=== PATIENT | female | born 1960 | race Caucasian/White ===

== ENCOUNTER 2016-07-18 07:33 | Outpatient (CLI) ==
--- NOTE | 2016-07-18 08:47 | DI ---
EXAM: Two views of the chest. History: Short of breath Findings: Heart size is within normal limits. No focal consolidation. No appreciable pleural flui d and no pneumothorax. A few old left-sided rib fractures. Surgical clips seen within the left axi lla. Degenerative changes seen within the visualized upper lumbar spine. Impression: No acute cardiopulmonary process.
--- NOTE | 2016-07-18 08:47 | DI ---
EXAM: Four views of the left knee. History: Left knee pain. Findings: No acute fracture or dislocation. No abnormal calcifications or radiopaque foreign soledad s. Mild to moderate narrowing of the lateral compartment and patellofemoral compartment. Mild narr owing of the medial compartment. There are small osteophytes. Impression: No acute osseous abnormality. Mild to moderate osteoarthritis.
--- NOTE | 2016-07-18 08:47 | DI ---
EXAM: Four views of the right knee. History: Right knee pain. Findings: No acute fracture or dislocation. Mild to moderate tricompartmental joint space narrowin g with small osteophytes. No radiopaque foreign bodies. Impression: No acute osseous abnormality. Mild to moderate osteoarthritis.
== END 2016-07-18 07:34 | disposition home or self-care (01) ==
LOC: RAD 07:33
PROVIDERS: ATTEND Internal Medicine
DX: R06.02 Shortness of breath (principal); M25.562 Pain in left knee; M25.561 Pain in right knee

== ENCOUNTER 2016-07-26 12:10 | Outpatient (CLI) ==
--- NOTE | 2016-07-26 13:10 | US ---
EXAM: Bilateral carotid artery Doppler History: Dizziness and hypertension. Technique: Multiple sonographic images through the bilateral internal carotid arteries were obtaine d. Color duplex Doppler was used to interrogate vascular flow. Findings: The right ICA peak systolic velocity is within normal limits measuring 0.7 meters per second. The r ight ICA/cca PSV ratio is normal at 1.1. The right vertebral artery is patent and demonstrates ante grade flow. Gardner scale images demonstrate no significant plaque buildup. The left ICA peak systolic velocity is within normal limits measuring 0.8 meters per second. The le ft ICA/cca PSV ratio is normal. 1.1. The left vertebral artery is patent and demonstrates antegrad e flow. Gardner scale images demonstrate no significant plaque buildup. Impression: No significant hemodynamic stenosis of the bilateral internal carotid arteries.
== END 2016-07-26 12:11 | disposition home or self-care (01) ==
LOC: RAD 12:10
PROVIDERS: ATTEND Internal Medicine
DX: R42 Dizziness and giddiness (principal)

== ENCOUNTER 2016-07-27 06:29 | Outpatient (CLI) ==
--- NOTE | 2016-07-31 12:06 | ECHO2D ---
Date of Exam: 07/27/16 Ordering Physician: ANH GARCIA Reason for Echo: SOB, HYPERTENSION M-Mode Normal Adult Results LV Dimensions Normal Adult Results AoV Opening excursions >1.6 >1.6 LVEDD-base- 3.5-5.8 4.8 Ao root dimensions 2.0-3.7 3.4 LVESD-base- 3.1-4.6 L. Atrium dimensions 1.9-3.8 3.4 Post. Wall thickness 0.8-1.1 1.3 IV septum (thickness) 0.7-1.2 1.3 Post. Wall excursion 0.72-1.3 NORMAL Septal motion NORMAL Systolic motion R. Ventricular cavity 1.5-2.0 NORMAL LVEF 60% 50% Paradoxical septal wall motion NORMAL 2-D :2-D M Mode Echocardiogram was performed using apical four chamber and left parasternal long and short axis views. Mitral, tricuspid and aortic valves appear to be normal. Contractility of the left ventricle seems to be normal, so is the cavity size. Left atrial cavity size and aortic root appear to be normal. There is no pericardial effusion. There is no thrombus noted in the left ventricular or left aortic cavity. No mitral valve prolapse noted. M-MODE: MV: NORMAL AV: NORMAL TV: NORMAL PV: CHAMBER SIZE: NORMAL WALL MOTION: NORMAL PERICARDIUM: NORMAL INTERPRETATION: 1. LEFT VENTRICULAR HYPERTROPHY 2. NORMAL LEFT VENTRICULAR CONTRACTILITY 3. NORMAL VALVES MTDD
== END 2016-07-27 06:30 | disposition home or self-care (01) ==
LOC: CAR 06:29
PROVIDERS: ATTEND Internal Medicine
DX: R06.02 Shortness of breath (principal); I10 Essential (primary) hypertension

== ENCOUNTER 2016-07-28 06:28 | Outpatient (CLI) ==
--- NOTE | 2016-07-28 10:28 | NM ---
EXAM: Myocardial perfusion imaging HISTORY: Shortness of breath and hypertension COMPARISON: None. TECHNIQUE: Patient was injected 4 mCi of thallium 201 chloride intravenously while at rest. SPECT i maging of the heart was acquired. Patient was stressed on a treadmill using Mahesh protocol and at p eak exercise injected 24.9 mCi of Tc99m Sestamibi intravenously. Another SPECT imaging of the heart was performed. Gated cardiac study was acquired. FINDINGS: Post stress images show normal left ventricular cavity size. Reduced perfusion is noted i nvolving anterior wall. This shows reperfusion on delayed imaging. No other perfusion abnormality is detected. Left ventricular ejection fraction is 69% and wall motion is normal. IMPRESSION: 1. SPECT myocardial imaging shows mild degree of anterior wall reversible ischemia. 2. Normal left ventricular ejection fraction and normal wall motion
--- NOTE | 2016-07-31 12:03 | STECHOSEST ---
Date of Test: 07/28/16 Reason for Exam: SOB, HTN Ordering Physician: ANH GARCIA Current Medications: PRAVASTATIN, BLOOD PRESSURE PILL Physical Findings: S1, S2, NO S3 Resting EKG: SINUS RHYTHM Target Heart Rate: 141/166 STAGE MPH/GRADE HEART RATE BPM BLOOD PRESSURE mmhg RHYTHM S-T SEGMENT UP DOWN SYMPTOMS,COMMENTS At Rest 75 132/86 SR X NONE 1 1.7/10% 121 172/90 SR X NONE 2 2.5/12% 3 3.4/14% 4 4.2/16% 5 5.0/18% Immediately after 142 134/86 SR X SHORT OF BREATH Total Time: 4:00 Durations of Exercise: 142 Reason for Termination: SHORT OF BREATH 5 MIN POST EXERCISE: HR 75/BPM, BP 134/86 MMHG, SR S-T SEGMENT +/- INTERPRETATION: 98% OXYGEN SATURATION WITH EXERCISE ON ROOM AIR METS 7.0 1. NO EVIDENCE OF ISCHEMIA BY ST-T WAVE 2. NO CHEST PAIN OR CHEST DISCOMFORT 3. NO ARRHYTHMIAS 4. BLOOD PRESSURE RESPONSE: NORMAL SESTAMIBI TO FOLLOW MTDD
== END 2016-07-28 06:29 | disposition home or self-care (01) ==
LOC: CAR 06:28
PROVIDERS: ATTEND Internal Medicine
DX: R94.31 Abnormal electrocardiogram [ECG] [EKG] (principal); R06.02 Shortness of breath; I10 Essential (primary) hypertension
CPT/HCPCS: 93017; 93018

== ENCOUNTER 2018-04-15 14:20 | Inpatient (IN) ==
[2018-04-15 14:49] VITALS: BMI 34.9
[2018-04-15] MEDS ORDERED: DECADRON 4 MG/ML SDV IM STA (15:20)
[2018-04-15] MEDS ORDERED: NON-FORMULARY MEDICATION (Celecoxib [Celebrex] 200 MG) PO PRN (15:54)
[2018-04-15] MEDS ORDERED: CELEBREX PO PRN ×2 (15:57→16:00)
[2018-04-15] MEDS ORDERED: NON-FORMULARY MEDICATION (Atorvastatin Calcium [Lipitor] 40 MG) PO SCH (16:00)
[2018-04-15] MEDS ORDERED: ROCEPHIN ONE (16:26)
[2018-04-15] MEDS: SODIUM CHLORIDE 1,000 ML IV SCH (16:30)
[2018-04-15] MEDS: LIPITOR PO SCH (16:30)
[2018-04-15] MEDS: ROCEPHIN 1 GM in SODIUM CHLORIDE 50 ML IV SCH (16:30)
[2018-04-15] MEDS: CLEOCIN 300 MG in SODIUM CHLORIDE 100 ML IV SCH ×2 (17:43→22:29)
[2018-04-15] MEDS ORDERED: TORADOL IVP PRN (18:40)
[2018-04-16] MEDS: CLEOCIN 300 MG in SODIUM CHLORIDE 100 ML IV SCH (04:53)
[2018-04-16] MEDS: SODIUM CHLORIDE 1,000 ML IV SCH (04:53)
--- NOTE | 2018-04-16 07:36 | CT ---
EXAM: CT THORAX HISTORY: Mastitis. TECHNIQUE: CT thorax with and without intravenous contrast. Multiplanar images presented. 75 ml Om nipaque COMPARISON: None FINDINGS: Normal heart size. No pericardial effusion. Atherosclerotic disease is relatively mild although jaylen ears to involve the coronary arteries. The lungs are clear. No suspicious pulmonary opacities. There is no vascular congestion, pneumothor ax or pleural fluid. The bones reveal scattered degenerative endplate changes and osteophytic spurring. There are a few s urgical clips in the left axillary region. Peripheral soft tissues reveal thickening of the skin of the anterior left breast. IMPRESSION: 1. Moderate skin thickening of the anterior left breast without well-defined abscess. This can be c onsistent with cellulitis or superficial mastitis. Inflammatory carcinoma is not excluded. Follow u p with mammography center is recommended. 2. Clear lungs. 3. Atherosclerosis.
[2018-04-16] MEDS: ROCEPHIN 1 GM in SODIUM CHLORIDE 50 ML IV SCH (09:00)
[2018-04-16] MEDS: LIPITOR PO SCH (09:00)
--- NOTE | 2018-04-16 09:32 | PCM.PROG ---
Attending Provider: ATTENDING PROVIDER: Dr. ANH GARCIA This patient is seen with Lupe Aguilar, Nurse Practitioner. DATE OF SERVICE: 04/16/18 SUBJECTIVE: This 57 year old WHITE/ F was hospitalized 04/15/18. The patient is resting comfortably. No fever. She states pain in left breast is slightly improved; still with redness. REVIEW OF SYSTEMS: CONSTITUTIONAL: No night sweats. No fatigue, malaise, lethargy. No fever or chills. HEENT: Eyes: No visual changes. No eye pain. No eye discharge. ENT: No runny nose. No epistaxis. No sinus pain. No odynophagia. No congestion. RESPIRATORY: No cough, no congestion. No hemoptysis. No shortness of breath. CARDIOVASCULAR: No angina symptoms. No CHF symptoms. No atypical chest pain for CAD. No palpitations. No orthopnea.. GASTROINTESTINAL: No abdominal pain. No nausea or vomiting. No diarrhea or constipation. No hematemesis. No hematochezia. GENITOURINARY: No urgency. No frequency. No dysuria. No hematuria. No obstructive symptoms. No discharge. No pain. No significant abnormal bleeding. MUSCULOSKELETAL: Left breast pain. No musculoskeletal pain; no joint swelling. NEUROLOGICAL: Awake, alert, oriented to time, place and person. No headache. No neck pain. No syncope. No seizures. No dizziness. PSYCHIATRIC: Not anxious. No depression. No suicidal thoughts. No homicidal thoughts. SKIN: No rash. No lesions. No wounds. Erythema left breast particularly around areola. Tenderness improving. ENDOCRINE: No unexplained weight loss. No weight gain. HEMATOLOGIC/LYMPHATIC: No anemia. No purpura. No petechiae. No prolonged or excessive bleeding. No palpable lymph nodes. PHYSICAL EXAMINATION: GENERAL: The patient is awake, alert and oriented, lying in bed in no distress. VITAL SIGNS: Temperature 97.7 F, Pulse 72, Respiratory Rate 20, BP 150/80, Pulse Ox 95% HEENT: Head normocephalic, atraumatic. Eyes: Extraocular muscles are intact. Pupils are equal, round and reactive to light and accommodation. Ears: No lesions. Nose appeared normal. Throat: No exudate or erythema. NECK: Supple. No JVD, no carotid bruit. No lymphadenopathy or thyromegaly. LUNGS: Clear to auscultation. Percussion note normal. Chest symmetrical. BREASTS: Erythema left breast particularly around areola, improving tenderness. No masses. Left axilla lymphadenopathy. HEART: S1, S2, no S3. No murmurs. No cyanosis or clubbing. No ascites. Pulses: Dorsalis pedis and posterior tibial pulses +1 to +2 both sides. ABDOMEN: Soft. Non-tender. Bowel sounds active. No CVA tenderness. No mass felt. EXTREMITIES: No edema. Full range of motion of all extremities, equal. NEUROLOGIC: No focal deficit. Cranial nerves II through XII are grossly intact. No headache, no double vision or headache. SKIN: Not dry. Intact. Turgor-normal. LYMPHATIC: No palpable lymph nodes/no lymphedema. MUSCULOSKELETAL: Normal joints with no swelling. Muscle tone is normal. LAB REVIEW: 04/16/18 04:50 04/16/18 04:50 04/16/18 04:50: Sodium 139.0, Potassium 4.23, Chloride 103.9, Carbon Dioxide 26.5, Anion Gap 12.83, BUN 12.7, Creatinine 0.51 L, Estimated GFR (MDRD) 125.00 , BUN/Creatinine Ratio 24.90, Glucose 125.4 H, Calcium 9.51, Total Bilirubin 0.59, AST 25.6, ALT 25.7, Alkaline Phosphatase 87.4, Total Protein 7.56, Albumin 4.50, Globulin 3.06, Albumin/Globulin Ratio 1.47 04/16/18 04:50: WBC 13.00 H, RBC 5.20, Hgb 14.4, Hct 43.1, MCV 82.9, MCH 27.7, MCHC 33.4, RDW Coeff of Emerson 12.7, Plt Count 312, Immature Gran % (Auto) 0.3, Neut % (Auto) 83.3, Lymph % (Auto) 10.2, [place] % (Auto) 5.9, Eos % (Auto) 0.1, Baso % (Auto) 0.2, Immature Gran # (Auto) 0.0, Neut # (Auto) 10.8 H, Lymph # ( Auto) 1.3, [place] # (Auto) 0.8, Eos # (Auto) 0.0, Baso # (Auto) 0.0 04/15/18 15:33: Sodium 138.3, Potassium 4.11, Chloride 101.3, Carbon Dioxide 27.2, Anion Gap 13.91, BUN 10.1, Creatinine 0.59 L, Estimated GFR (MDRD) 105.00 , BUN/Creatinine Ratio 17.11, Glucose 131.7 H, Calcium 9.71, Total Bilirubin 0.56, AST 27.5, ALT 27.5, Alkaline Phosphatase 87.2, Total Protein 7.51, Albumin 4.49, Globulin 3.02, Albumin/Globulin Ratio 1.48 04/15/18 15:33: WBC 13.25 H, RBC 5.14, Hgb 14.4, Hct 42.3, MCV 82.3, MCH 28.0, MCHC 34.0, RDW Coeff of [place] 12.6, Plt Count 281, Immature Gran % (Auto) 0.3, Neut % (Auto) 79.9, Lymph % (Auto) 11.8, [place] % (Auto) 7.1, Eos % (Auto) 0.5, Baso % (Auto) 0.4, Immature Gran # (Auto) 0.0, Neut # (Auto) 10.6 H, Lymph # ( Auto) 1.6, [place] # (Auto) 0.9, Eos # (Auto) 0.1, Baso # (Auto) 0.1 ASSESSMENT: 1. Left breast mastitis 2. Fever - improved PLAN: 1. Continue IV antibiotics. 2. Radiology has agreed to do ultrasound of left breast tomorrow when radiologist is present otherwise previously refused. Plan and coordination of the patient's care discussed in the presence of Fitting Room Maintenance Mechanic and nurse. CONDITION: Stable SCRIBED BY: AN ALMANZAR Leather Stripping Machine Operator scribed while in presence of service performed by Dr. Garcia/Lupe Aguilar APRN on 04/16/18 ([id number])
[2018-04-16] MEDS ORDERED: CLEOCIN 300 MG in SODIUM CHLORIDE 50 ML IV SCH (13:00)
[2018-04-16] MEDS: CLEOCIN 600 MG in SODIUM CHLORIDE 50 ML IV SCH (20:30)
[2018-04-17] MEDS: SODIUM CHLORIDE 1,000 ML IV SCH (02:36)
[2018-04-17] MEDS: CLEOCIN 600 MG in SODIUM CHLORIDE 50 ML IV SCH ×2 (06:15→12:23)
[2018-04-17 06:19] VITALS: BP 162/93; TEMP 98.1
--- NOTE | 2018-04-17 09:04 | PCM.PROG ---
Attending Provider: ATTENDING PROVIDER: Dr. ANH GARCIA DATE OF SERVICE: 04/17/18 SUBJECTIVE: This 57 year old WHITE/ F was hospitalized 04/15/18 with mastitis of left breast. She is feeling much better. She states not much tenderness in the left breast. She is afebrile, no chills. Appetite improved. REVIEW OF SYSTEMS: CONSTITUTIONAL: No night sweats. No fatigue, malaise, lethargy. No fever or chills. HEENT: Eyes: No visual changes. No eye pain. No eye discharge. ENT: No runny nose. No epistaxis. No sinus pain. No odynophagia. No congestion. RESPIRATORY: No cough, no congestion. No hemoptysis. No shortness of breath. CARDIOVASCULAR: No angina symptoms. No CHF symptoms. No atypical chest pain for CAD. No palpitations. No orthopnea.. GASTROINTESTINAL: No abdominal pain. No nausea or vomiting. No diarrhea or constipation. No hematemesis. No hematochezia. GENITOURINARY: No urgency. No frequency. No dysuria. No hematuria. No obstructive symptoms. No discharge. No pain. No significant abnormal bleeding. MUSCULOSKELETAL: No musculoskeletal pain; no joint swelling. NEUROLOGICAL: Awake, alert, oriented to time, place and person. No headache. No neck pain. No syncope. No seizures. No dizziness. PSYCHIATRIC: Not anxious. No depression. No suicidal thoughts. No homicidal thoughts. SKIN: Less redness in the left breast and left axilla. No lesions. No wounds. ENDOCRINE: No unexplained weight loss. No weight gain. HEMATOLOGIC/LYMPHATIC: No anemia. No purpura. No petechiae. No prolonged or excessive bleeding. No palpable lymph nodes. PHYSICAL EXAMINATION: GENERAL: The patient is awake, alert and oriented, lying in bed in no distress. VITAL SIGNS: Temperature 98.1 F, Pulse 60, Respiratory Rate 16, BP 162/93, Pulse Ox 98% HEENT: Head normocephalic, atraumatic. Eyes: Extraocular muscles are intact. Pupils are equal, round and reactive to light and accommodation. Ears: No lesions. Nose appeared normal. Throat: No exudate or erythema. NECK: Supple. No JVD, no carotid bruit. No lymphadenopathy or thyromegaly. LUNGS: Clear to auscultation. Percussion note normal. Chest symmetrical. HEART: S1, S2, no S3. No murmurs. No cyanosis or clubbing. No ascites. Pulses: Dorsalis pedis and posterior tibial pulses +1 to +2 both sides. ABDOMEN: Soft. Non-tender. Bowel sounds active. No CVA tenderness. No mass felt. EXTREMITIES: No edema. Full range of motion of all extremities, equal. NEUROLOGIC: No focal deficit. Cranial nerves II through XII are grossly intact. No headache, no double vision or headache. SKIN: Warm and dry. Intact. Turgor-normal. Streaks going to the left axilla are practically absent now and redness size has shrunk since yesterday with skin overlying the inflamed area less tense. LYMPHATIC: No palpable lymph nodes/no lymphedema. MUSCULOSKELETAL: Normal joints with no swelling. Muscle tone is normal. LAB REVIEW: 04/17/18 06:40 04/17/18 06:40 04/17/18 06:40: Sodium 141.3, Potassium 4.02, Chloride 104.2, Carbon Dioxide 27.8, Anion Gap 13.32, BUN 12.9, Creatinine 0.51 L, Estimated GFR (MDRD) 125.00 , BUN/Creatinine Ratio 25.29, Glucose 87.0, Calcium 8.61, Total Bilirubin 0.28, AST 31.5, ALT 29.0, Alkaline Phosphatase 78.1, Total Protein 6.57, Albumin 3.79 , Globulin 2.78, Albumin/Globulin Ratio 1.36 04/17/18 06:40: WBC 9.77, RBC 4.72, Hgb 13.0, Hct 39.4, MCV 83.5, MCH 27.5, MCHC 33.0, RDW Coeff of Emerson 12.7, Plt Count 271, Immature Gran % (Auto) 0.3, Neut % (Auto) 49.5, Lymph % (Auto) 38.9, [place] % (Auto) 8.6, Eos % (Auto) 2.1, Baso % (Auto) 0.6, Immature Gran # (Auto) 0.0, Neut # (Auto) 4.8, Lymph # (Auto ) 3.8 H, [place] # (Auto) 0.8, Eos # (Auto) 0.2, Baso # (Auto) 0.1 ASSESSMENT: 1. Mastitis seems to be resolving with Rocephin and Clindamycin. WBC count normal, afebrile. PLAN: 1. The patient will have mammogram and ultrasound today. 2. The patient will likely be discharged pending results. 3. At discharge, Omnicef 300 mg b.i.d times 10 days, Clindamycin 300 mg t.i.d. times five days. 4. Iinstructed to come back and see me on Sunday. Plan and coordination of the patient's care discussed in the presence of Oil Tank Car Cleaner and nurse. CONDITION: Stable SCRIBED BY: AN ALMANZAR Clinical Documentation Spec scribed while in presence of service performed by Dr. ANH GARCIA on 04/17/18 ([id number])
[2018-04-17] MEDS: ROCEPHIN 1 GM in SODIUM CHLORIDE 50 ML IV SCH (10:07)
[2018-04-17] MEDS: LIPITOR PO SCH (10:07)
--- NOTE | 2018-04-17 13:27 | PN ---
DATE OF SERVICE: 04/15/18 SUBJECTIVE: The patient was hospitalized through the office. The patient was seen and examined by the nurse practitioner. The patient's plan to be for the treatment is to get IV antibiotics, double. The patient was reluctant to get hospitalized. I explained the differential diagnosis. CONDITION: Stable. TIME SPENT: More than 30 minutes. Plan and coordination of the patient's care discussed in the presence of nurse. JACQUES
--- NOTE | 2018-04-17 13:54 | HP ---
DATE OF SERVICE: 04/15/18 HISTORY OF PRESENT ILLNESS: This 57-year-old /White female presented with head congestion, yesterday tender left axilla and today woke up with left breast red, tender into axilla and low grade temperature. She is chilled, weak, can't even wear bra. No nipple discharge. PAST MEDICAL HISTORY: Dyslipidemia Obesity Hypertension Psoriasis Osteoarthritis Shortness of breath Chronic sinusitis Hysterectomy PAST SURGICAL HISTORY: Hysterectomy 16 years ago Lymph node removed (left) REVIEW OF SYSTEMS: CONSTITUTIONAL: Fever. No fatigue. HEENT: No sinus drainage, no sore throat. RESPIRATORY: No cough. No hemoptysis. CARDIOVASCULAR: No atypical chest pain for coronary artery disease. No angina , CHF symptoms, palpitations or shortness of breath. GASTROINTESTINAL: No melena or abdominal pain. No GERD. GENITOURINARY: No hematuria, no polyuria. POWDER CARRIER: No blackout, no dizziness, no headache, no double vision. MUSCULOSKELETAL: No osteoarthritis pain, no joint swelling. ENDOCRINE: No weight loss, no weight gain. SKIN: Rash. PSYCHIATRIC: Not anxious, no depression, no suicidal thoughts, no homicidal thoughts. SOCIAL HISTORY: . Nonsmoker. Occasional alcohol use. No illicit drug use. Three children. Occupation - teacher. FAMILY HISTORY: Father is alive - stroke. Mother alive - stent at one time. Brothers (2) living. No sisters. MEDICATIONS: Lipitor 40 mg one daily Celebrex 200 mg one daily p.r.n. Bystolic 5 mg p.r.n. Amoxil 500 mg p.o. t.i.d. times 11 ALLERGIES: ALMONDS MENSTRUAL HISTORY: Hysterectomy 16 years ago. PHYSICAL EXAMINATION: V/S: Pulse 90, BP 148/82, temperature 99.9, 02 sat 95%. Height 5'8", Weight 232.4. BMI 35.3. GENERAL APPEARANCE: Oriented times three. Positive for fever and is pale. HEENT: Normal. NECK: No JVP, no bruits. RESPIRATORY: Lungs are clear. BREASTS: Diffuse erythema, tenderness left breast, tender to left axilla, red 3/ 4 left breast. CARDIOVASCULAR: S1, S2, no S3, no murmurs. No cyanosis, clubbing. No ascites. GI/ABDOMEN: No tenderness. Bowel sounds are active. EXTREMITIES: No edema, pulses +1, equal. POWDER CARRIER: Deep tendon reflexes, sensory, motor and gait all normal. PELVIC: Hysterectomy. Mammogram 09/10 [facility]. ASSESSMENT: 1. MASTITIS LEFT BREAST 2. FEVER 3. DYSLIPIDEMIA 4. OBESITY 5. HYPERTENSION 6. PSORIASIS 7. OSTEOARTHRITIS 8. SHORTNESS OF BREATH 9. CHRONIC SINUSITIS 10. HYSTERECTOMY PLAN: 1. Admit 2. Routine telemetry order - no cardiac markers 3. Clindamycin IV 300 mg q.8hr 4. 1 cc Decadron IM 5. Rocephin 1 gm IV daily 6. NS IV @ 75 cc/hr 7. Ultrasound left breast 8. CT of chest with and without 9. CBC/CMP daily and now 10. Chest x-ray today 11. Regular diet 12. Continue home medications TIME SPENT: More than 70 minutes. MTDD
--- NOTE | 2018-04-17 14:32 | PN ---
DATE OF SERVICE: 04/15/18 SUBJECTIVE: The patient was hospitalized through the office. The patient was seen and examined with Nurse Practitioner. The patient's plan for further treatment is to get IV antibiotics. The patient was reluctant to get hospitalized. Explained the differential diagnosis. TIME SPENT: More than 30 minutes. Plan and coordination of the patient's care discussed in the presence of nurse. JACQUES
--- NOTE | 2018-04-17 14:53 | CM.DICTOOL ---
ADMISSION: 04/15/18 14:20 DISCHARGE: 04/17/18 FINAL DIAGNOSIS LEFT BREAST MASTITIS - ACUTE HISTORY OF: DYSLIPIDEMIA OBESITY HTN PSORIOSIS OSTEOARTHRITIS DYSPNEA CHRONIC SINUSITIS S/P HYSTERECTOMY NON-COMPLIANCE LAST VITALS Temp Pulse Resp BP Pulse Ox 98.1 F 60 16 162/93 H 98 04/17/18 06:00 04/17/18 06:00 04/17/18 06:00 04/17/18 06:00 04/17/18 06:00 TAKE THESE MEDICATIONS AT HOME Atorvastatin Calcium (Lipitor) 40 mg PO DAILY [facility] Last Admin: 04/17/18 10:07 Dose: 40 mg Celecoxib (Celebrex) 200 mg PO DAILY PRN PRN Reason: Pain ALLERGIES almond Adverse Reaction (Verified 04/15/18 17:41) Discontinued Medications Celecoxib (Celebrex) 100 mg PO DAILY PRN PRN Reason: Pain Dexamethasone Sodium Phosphate (Decadron 4 Mg/Ml Sdv) 4 mg IM ONCE STA Stop: 04/15/18 15:21 Last Admin: 04/15/18 16:30 Dose: 4 mg Clindamycin Phosphate 300 mg/ (Sodium Chloride) 102 mls @ 208 mls/hr IV Q8HR [facility] Last Admin: 04/16/18 04:53 Dose: 208 mls/hr Clindamycin Phosphate 300 mg/ (Sodium Chloride) 52 mls @ 50 mls/hr IV Q8HR [facility] Last Admin: 04/16/18 12:53 Dose: 50 mls/hr NEW PRESCRIPTIONS: NEW MEDICATIONS: 1. OMNICEF 300MG TAKE 1 CAPSULE 2 TIMES A DAY FOR 10 DAYS. MAY TAKE WITH FOOD. TAKE UNTIL ALL GONE. 2. CLINDAMYCIN 300MG TAKE 1 CAPSULE 3 TIMES A DAY FOR 5 DAYS. MAY TAKE WITH FOOD. TAKE UNTIL ALL GONE. SMOKING: N/A DISEASE SPECIFIC EDUCATION: LEFT BREAST MASTITIS FEVER ANTIBIOTIC THERAPY FOLLOW UP VISIT LAB REVIEW: 04/17/18 06:40 04/17/18 06:40 04/17/18 06:40: Sodium 141.3, Potassium 4.02, Chloride 104.2, Carbon Dioxide 27.8, Anion Gap 13.32, BUN 12.9, Creatinine 0.51 L, Estimated GFR (MDRD) 125.00 , BUN/Creatinine Ratio 25.29, Glucose 87.0, Calcium 8.61, Total Bilirubin 0.28, AST 31.5, ALT 29.0, Alkaline Phosphatase 78.1, Total Protein 6.57, Albumin 3.79 , Globulin 2.78, Albumin/Globulin Ratio 1.36 04/17/18 06:40: WBC 9.77, RBC 4.72, Hgb 13.0, Hct 39.4, MCV 83.5, MCH 27.5, MCHC 33.0, RDW Coeff of [place] 12.7, Plt Count 271, Immature Gran % (Auto) 0.3, Neut % (Auto) 49.5, Lymph % (Auto) 38.9, [place] % (Auto) 8.6, Eos % (Auto) 2.1, Baso % (Auto) 0.6, Immature Gran # (Auto) 0.0, Neut # (Auto) 4.8, Lymph # (Auto ) 3.8 H, [place] # (Auto) 0.8, Eos # (Auto) 0.2, Baso # (Auto) 0.1 PLAN: DISCHARGE HOME TODAY. CONTINUE HOME MEDICATIONS PER NURSING SHEETS. NEW MEDICATIONS: 1. OMNICEF 300MG TAKE 1 CAPSULE 2 TIMES A DAY FOR 10 DAYS. MAY TAKE WITH FOOD. TAKE UNTIL ALL GONE. 2. CLINDAMYCIN 300MG TAKE 1 CAPSULE 3 TIMES A DAY FOR 5 DAYS. MAY TAKE WITH FOOD. TAKE UNTIL ALL GONE. DIET TOLERATED. ACTIVITY GRADUALLY RESUME ACTIVITY. FOLLOW UP WITH DR. GARCIA ON SundayMarch AT 330PM. FOLLOW RECOMMENDATIONS BY RADIOLOGIST IS A FULL CODE. SITTING UP IN BED. ALERT AND ORIENTED X 4. DR. GARCIA INTO SEE PATIENT. PATIENT STATES FEELING BETTER. STATES LEFT BREAST IS LESS TENDER. PLAN OF CARE DISCUSSED PER DR. GARCIA. PATIENT VERBALIZES UNDERSTANDING AND AGREEMENT. APPETITE FOR PAST 24 HOURS: 100-100-100%. VITAL SIGNS ARE STABLE. HAS BEEN AFEBRILE. POX 98% ON ROOM AIR. HEART TONES ARE REGULAR WITH TELEMETRY REVEALING SINUS RHYTHM WITH PAC. NO C/O PAIN OR DISCOMFORT. LUNGS ARE CLEAR. NO COUGH OR DYSPNEA NOTED. ABDOMEN IS SOFT, NON-TENDER WITH BOWEL SOUNDS POSITIVE IN ALL 4 QUADS. PEDAL PULSES POSITIVE WITHOUT EDEMA. LEFT BREAST IS LESS RED AND TENDER. IS NOW SLIGHTLY RED AROUND AREOLA. HAS IV OF NORMAL SALINE AT 75ML/HR IN LEFT WRIST SITE IS CLEAR. IS INDEPENDENT WITH ACTIVITIES OF DAILY LIVING. SKIN WARM, DRY AND INTACT. DR. ANH GARCIA MD Dhiraj IYER APRN
--- NOTE | 2018-04-17 17:42 | MAMMO ---
EXAM: Digital diagnostic bilateral mammogram and bilateral ultrasound HISTORY: Left breast mastitis, right breast follow-up COMPARISON: 08/29/2017 FINDINGS: Mammogram: Digital MLO and CC views of the right and left breast were performed. Tomosynthesis was performed. Computer aided detection utilized. There are scattered fibroglandular densities. There is an asymm etry in the right superior breast 12 o'clock position anterior depth. There is an asymmetry in the l eft retroareolar region. Ultrasound: Right: At the 12 o'clock position and 4 cm of the nipple, in the area of mammographic finding, there is a hypoechoic mass with posterior shadowing, measuring 0.8 x 0.5 x 0.8 cm. Left: In the left retroareolar region, there is focal edema. This likely correlates with the findin g on mammogram. At the 2 o'clock position and 3 cm of the nipple, there is a cyst with mild internal echoes, measuring 0.3 x 0.3 x 0.3 cm. IMPRESSION: 1. Right breast mass. This finding is suspicious. Recommend tissue sampling. This would be availa ble to ultrasound-guided biopsy. BIRADS category 4. 2. Left retroareolar asymmetry on mammogram with associated edema on ultrasound. This finding is pr obably benign and most likely relates to mastitis. No drainable abscess. Follow-up mammogram and ul trasound recommended in 1 month following treatment, or sooner as clinically indicated. BIRADS categ ory 3. 3. Mildly complex left breast cyst. This finding is probably benign. This can be assessed on follo w-up. BIRADS category 3. BIRADS category 4, suspicious.
--- NOTE | 2018-04-18 07:54 | DS ---
DATE OF SERVICE: 04/17/18 FINAL DIAGNOSIS: 1. Left breast mastitis-acute 2. History of dyslipidemia 3. Obesity 4. Hypertension 5. Psoriasis 6. Osteoarthritis 7. Dyspnea 8. Chronic sinusitis 9. Status post hysterectomy 10.Non-compliance LAST VITALS: Temperature 98.1, pulse 60, respiratory rate 16, blood pressure 162/93, pulse ox 98%. DISCHARGE INSTRUCTIONS: Discharge home today. Continue home medications per nursing sheet. Followup with Dr. Milligan on SundayApril 19 at 330pm. Follow recommendations by radiologist. MEDICATIONS AT DISCHARGE: Lipitor 40mg PO daily Celebrex 200mg PO daily PRN ALLERGIES: [place] DISCONTINUE MEDICATIONS: Celebrex 100mg PO daily PRN Decadron 4mg IM once stat Sodium Chloride 102mls at 208mls/hr IV Q 8 hours Sodium Chloride 52mls/hr IV Q 8 hours NEW PRESCRIPTIONS: Omnicef 300mg take one capsule two times a day for 10 days. May take with food. Take until all gone. Clindamycin 300mkg take one capsule three times a day for 5 days. May take with food. Take until all gone. DIET INSTRUCTIONS: As tolerated ACTIVITY: Gradually resume activity SMOKING: N/A DISEASE SPECIFIC EDUCATION: Left breast mastitis Fever Antibiotic therapy Followup visit HOSPITAL COURSE: Gayle Huggins was hospitalized through the office when she was seen with left acute mastitis. The patient was treated with Clindamycin and Rocephin. Her condition improved remarkably. Within two days the swelling was much less. The redness was much less. Lymphangitis going to the axilla also almost resolved. The patient was feeling better. The Ultrasound revealed very likely acute mastitis. Right breast also revealed some abnormality for which she has been recommended by the radiologist the followup ultrasound would be done on left breast by radiologist within 4-5 weeks. The patient was discharged on Clindamycin and Omnicef. She is to be followed on Sunday at 3:30. The patient is noncompliant of her followup, also the recommendations that she has been given for dyslipidemia, hypertension etc. CONDITION: Stable. TIME SPENT: More than 60 minutes. [facility]
== END 2018-04-17 15:37 | disposition home or self-care (01) | DRG 601 ==
LOC: MEDSURG B 14:20
PROVIDERS: ADMIT Internal Medicine; ATTEND Internal Medicine
DX: N61.0 Mastitis without abscess (principal); E78.5 Hyperlipidemia, unspecified; E66.9 Obesity, unspecified; I10 Essential (primary) hypertension; L40.9 Psoriasis, unspecified; M19.90 Unspecified osteoarthritis, unspecified site; J32.9 Chronic sinusitis, unspecified; R06.00 Dyspnea, unspecified; R06.02 Shortness of breath; Z68.35 Body mass index [BMI] 35.0-35.9, adult; Z91.19 Patient's noncompliance with other medical treatment and regimen
CPT/HCPCS: 36415; 80053; 85025; 99223; 99232; 99239